=== PATIENT | male | born 1945 | race Caucasian/White ===

== ENCOUNTER 2017-11-25 13:44 | Emergency (ER) | payer OTHER ==
[~2017-11-25] VITALS: Ht 160 cm; Wt 112.0 kg
[2017-11-25 15:56] LABS: BASOPHIL (%) 0.5 % (0-1); BASOPHIL COUNT 0.1 K/uL (0-0.1); EOSINOPHIL (%) 1.3 % (0-5); EOSINOPHIL COUNT 0.1 K/uL (0-0.3); HEMATOCRIT 35.4 % (38.0-50.0); IMMATURE GRANULOCYTE (%) 0.4 % (0.0-0.7); LYMPHOCYTE (%) 13.8 % (15-42); LYMPHOCYTE COUNT 1.5 K/uL (1.0-2.8); MCH 31.8 PG (29.0-34.0); MCHC 33.9 G/DL (30.0-36.0); MCV 93.9 FL (86-99); MONOCYTE (%) 13.2 % (3-12); MONOCYTE COUNT 1.5 K/uL (0-0.8); NEUTROPHIL (%) 70.8 % (45-76); NEUTROPHIL COUNT 7.9 K/uL (1.8-6.4); PLATELET COUNT 392 K/uL (156-360); RBC DIS.WIDTH-SD 50.4 % (39-53); RED BLOOD COUNT 3.77 M/uL (4.00-5.50); WHITE BLOOD COUNT 11.2 K/uL (4.1-10.2)
[2017-11-25 16:12] LABS: CHLORIDE 101 mEq/L (99-109); SODIUM 139 mEq/L (136-147)
[2017-11-25 16:14] LABS: GLUCOSE 169 mg/dL (70-99)
[2017-11-25 16:19] LABS: UREA NITROGEN (BUN) 23 mg/dL (9-23)
[2017-11-25 16:21] LABS: CREATININE 1.9 mg/dL (0.6-1.3); GFR ESTIMATE (CALCULATED) 37 mL/min/ (58.99-99999)
[2017-11-25 16:33] LABS: APPEARANCE CLEAR ((CLEAR)); BILIRUBIN NEGATIVE; BLOOD NEGATIVE; COLOR YELLOW ((YELLOW)); GLUCOSE (STRIP) 50; KETONES NEGATIVE; LEUKOCYTES NEGATIVE; NITRITE NEGATIVE; PROTEIN (STRIP) NEGATIVE; SPECIFIC GRAVITY 1.013 (1.000-1.030); UROBILINOGEN 0.2 MG/DL (0.2-1.0)
[2017-11-25 19:09] VITALS: BP 144/74
== END 2017-11-25 20:01 | disposition home or self-care (01) ==
LOC: EME 13:44
PROVIDERS: Emergency Medicine
PROC: 0T9B70Z Drainage of Bladder with Drainage Device, Via Natural or Artificial Opening (ICD-10-PCS; principal; 2017-11-25)
DX: R33.9 Retention of urine, unspecified (principal); E83.52 Hypercalcemia; N28.9 Disorder of kidney and ureter, unspecified; Z87.891 Personal history of nicotine dependence; Z98.890 Other specified postprocedural states
CPT/HCPCS: 80048; 81003; 85025; 99281; 99285; J3010; J7030

== ENCOUNTER 2017-12-10 09:15 | Emergency (ER) | payer OTHER ==
[~2017-12-10] VITALS: Ht 162.6 cm; Wt 111.7 kg
[2017-12-10 09:34] LABS: BASOPHIL (%) 0.3 % (0-1); BASOPHIL COUNT 0.1 K/uL (0-0.1); EOSINOPHIL (%) 0.1 % (0-5); HEMATOCRIT 36.8 % (38.0-50.0); HEMOGLOBIN 12.1 G/DL (12.5-16.6); LYMPHOCYTE (%) 5.2 % (15-42); LYMPHOCYTE COUNT 1.4 K/uL (1.0-2.8); MCH 31.2 PG (29.0-34.0); MCHC 32.9 G/DL (30.0-36.0); MCV 94.8 FL (86-99); MONOCYTE (%) 6.2 % (3-12); MONOCYTE COUNT 1.6 K/uL (0-0.8); NEUTROPHIL (%) 87.2 % (45-76); PLATELET COUNT 374 K/uL (156-360); RBC DIS.WIDTH-CV 14.9 % (11.8-14.6); RBC DIS.WIDTH-SD 51.3 % (39-53); RED BLOOD COUNT 3.88 M/uL (4.00-5.50); WHITE BLOOD COUNT 26.4 K/uL (4.1-10.2)
[2017-12-10 09:48] LABS: CHLORIDE 102 mEq/L (99-109); POTASSIUM 4.1 mEq/L (3.7-5.4); SODIUM 141 mEq/L (136-147)
[2017-12-10 09:50] LABS: GLUCOSE 229 mg/dL (70-99)
[2017-12-10 09:54] LABS: CREATININE 1.6 mg/dL (0.6-1.3); GFR ESTIMATE (CALCULATED) 45 mL/min/ (58.99-99999); UREA NITROGEN (BUN) 20 mg/dL (9-23)
[2017-12-10] MEDS ORDERED: PROVENTIL HFA6.7 GM IH (14:14)
[2017-12-10] MEDS ORDERED: AMLODIPINE BESYL5 MG PO (14:15)
[2017-12-10] MEDS ORDERED: ATORVASTATIN CA80 MG PO (14:16)
[2017-12-10] MEDS ORDERED: TUMS500 MG PO (14:18)
[2017-12-10] MEDS ORDERED: CYCLOBENZAPRINE5 MG PO (14:20)
[2017-12-10] MEDS ORDERED: VITAMIN D32000 UNI1 PO (14:20)
[2017-12-10] MEDS ORDERED: CYMBALTA60 MG PO (14:23)
[2017-12-10] MEDS ORDERED: IRON325 M1 PO (14:25)
[2017-12-10] MEDS ORDERED: FUROSEMIDE20 MG PO (14:27)
[2017-12-10 14:29] LABS: APPEARANCE TURBID ((CLEAR)); BILIRUBIN NEGATIVE; BLOOD LARGE; COLOR AMBER ((YELLOW)); GLUCOSE (STRIP) NEGATIVE; KETONES NEGATIVE; LEUKOCYTES LARGE; NITRITE NEGATIVE; PROTEIN (STRIP) >=500; SPECIFIC GRAVITY 1.028 (1.000-1.030); UROBILINOGEN 0.2 MG/DL (0.2-1.0)
[2017-12-10] MEDS ORDERED: DILAUDID2 MG PO (14:29)
[2017-12-10] MEDS ORDERED: NOVOLOG PE100 UNITS/ SC (14:31)
[2017-12-10] MEDS ORDERED: K-DUR20 MEQ PO (14:32)
[2017-12-10] MEDS ORDERED: LEVOTHYROXINE175 MCG PO (14:32)
[2017-12-10] MEDS ORDERED: BACTRIM,SEPT1 TABLET PO (14:38)
[2017-12-10 14:49] LABS: RED BLOOD CELLS TNTC /HPF (0-5)
[2017-12-10 14:50] LABS: UCUL ADDED? YES
[2017-12-10 14:52] LABS: WHITE BLOOD CELLS TNTC /HPF (0-5)
[2017-12-10] MEDS ORDERED: TYLENOL EXTRA500 MG PO (15:59)
[2017-12-10 16:16] VITALS: BP 182/80
== END 2017-12-10 16:17 ==
LOC: EME 09:15
PROVIDERS: Emergency Medicine
PROC: 0T9B70Z Drainage of Bladder with Drainage Device, Via Natural or Artificial Opening (ICD-10-PCS; principal; 2017-12-10)
DX: R33.9 Retention of urine, unspecified (principal); N39.0 Urinary tract infection, site not specified; N40.1 Benign prostatic hyperplasia with lower urinary tract symptoms; N32.0 Bladder-neck obstruction; N13.30 Unspecified hydronephrosis; K40.90 Unilateral inguinal hernia, without obstruction or gangrene, not specified as recurrent; K21.9 Gastro-esophageal reflux disease without esophagitis; N18.9 Chronic kidney disease, unspecified; F03.90 Unspecified dementia, unspecified severity, without behavioral disturbance, psychotic disturbance, mood disturbance, and anxiety; I50.9 Heart failure, unspecified; G47.30 Sleep apnea, unspecified; E66.01 Morbid (severe) obesity due to excess calories; Z68.41 Body mass index [BMI] 40.0-44.9, adult; Z87.891 Personal history of nicotine dependence; Z85.038 Personal history of other malignant neoplasm of large intestine; Z85.850 Personal history of malignant neoplasm of thyroid
CPT/HCPCS: 74177; 80048 91; 81003; 85025 91; 87077; 87086; 87186; 99281; 99285; J0696; J2270